=== PATIENT | male | born 1970 | race Two or more races ===

== ENCOUNTER 2022-08-17 05:22 | Emergency (ER) | payer BC ==
[~2022-08-17] VITALS: Ht 180.3 cm; Wt 92.6 kg
[~2022-08-17 05:22] MED LIST: CHOL100044 PO; PANT-47 PO; VALS320T17 PO; [UNRECOGNIZED DRUG - CODE] PO
[2022-08-17] MEDS ORDERED: normal saline 1000ML IV soln IVB ONE (06:35)
[2022-08-17] MEDS ORDERED: diphenhydrAMINE 50 mg/ml inj IV ONE (06:35)
[2022-08-17] MEDS ORDERED: metoclopramide 5 mg/ml inj IV ONE (06:35)
[2022-08-17] MEDS ORDERED: CHLO50TA52 PO (06:57)
[2022-08-17 07:26] LABS: ALANINE AMINOTRANSFERASE 43 U/L (12-78); ALBUMIN 3.7 G/DL (3.4-5.0); ALBUMIN/GLOBULIN RATIO 1.1 (1.1-1.5); ALKALINE PHOSPHATASE 104 IU/L (46-116); ANION GAP 10 (8-16); ASPARTATE AMINO TRANSFERASE 30 U/L (10-37); BILIRUBIN,TOTAL 0.4 MG/DL (0.1-1.0); BLOOD UREA NITROGEN 10 MG/DL (7-18); BUN/CREATININE RATIO 8.1 (10.0-20.0); CALCIUM 9.2 MG/DL (8.5-10.1); CHLORIDE 106 MMOL/L (99-107); CREATININE 1.23 MG/DL (0.60-1.10); GLUCOSE 107 MG/DL (70-104); POTASSIUM 3.8 MMOL/L (3.5-5.1); SODIUM 143 MMOL/L (135-145); TOTAL CARBON DIOXIDE 26.8 MMOL/L (24-32); TOTAL PROTEIN 7.2 G/DL (6.4-8.2); eGFR 62 ML/MIN
[2022-08-17 07:40] LABS: BASOPHILS # (AUTO) 0.1 X10'3 (0-0.2); EOSINOPHILS # (AUTO) 0.3 X10'3 (0-0.9); HEMATOCRIT 46.5 % (42.0-52.0); LYMPHOCYTES # (AUTO) 1.3 X10'3 (1.1-4.8); LYMPHOCYTES % (AUTO) 20.5 % (21-51); MEAN CORPUSCULAR HEMOGLOBIN 29.9 PG (27.0-31.0); MEAN CORPUSCULAR HGB CONC 34.5 g/dL (33.0-36.5); MEAN CORPUSCULAR VOLUME 86.7 FL (78-98); MEAN PLATELET VOLUME 8.9 FL (7.4-10.4); MONOCYTES # (AUTO) 0.5 X10'3 (0-0.9); MONOCYTES % (AUTO) 8.2 % (2-12); NEUTROPHILS # (AUTO) 4.2 X10'3 (1.8-7.7); NEUTROPHILS % (AUTO) 66.3 % (42-75); PLATELET COUNT 210 X10'3 (140-440); RED BLOOD COUNT 5.36 X10'6 (4.70-6.10); RED CELL DISTRIBUTION WIDTH 12.4 % (11.5-14.5); WHITE BLOOD COUNT 6.3 X10'3 (4.5-11.0)
[2022-08-17 08:19] VITALS: BP 117/75
[2022-08-17] MEDS ORDERED: CHLO50TA53 PO (16:32)
== END 2022-08-17 08:21 | disposition home or self-care (01) ==
LOC: ER 05:23
DX: R06.6 Hiccough (principal); R14.0 Abdominal distension (gaseous); R50.9 Fever, unspecified; K59.00 Constipation, unspecified; I10 Essential (primary) hypertension; Z72.89 Other problems related to lifestyle; Z79.899 Other long term (current) drug therapy; R25.2 Cramp and spasm; Z87.19 Personal history of other diseases of the digestive system
CPT/HCPCS: 36415; 80053; 85025; 96361; 96374; 96375; 99284; J1200; J2765; J7030